=== PATIENT | male | born 1955 | race African-American/Black ===

== ENCOUNTER 2017-12-29 13:54 | Emergency (ER) | payer MEDICAID | END 2017-12-29 15:11 | disposition left against medical advice (07) | LOC: ER 15:10 | DX: Z53.21 Procedure and treatment not carried out due to patient leaving prior to being seen by health care provider (principal) ==

== ENCOUNTER 2018-05-08 09:40 | Emergency (ER) | payer MEDICAID ==
[~2018-05-08] VITALS: Ht 182.9 cm; Wt 77.0 kg
[2018-05-08 10:35] LABS: CLARITY URINE CLEAR (CLEAR); COLOR URINE YELLOW (YELLOW); KETONES URINE NEGATIVE (NEGATIVE); LEUKOCYTE ESTERASE URINE NEGATIVE (NEGATIVE); NITRITE URINE NEGATIVE (NEGATIVE); OCCULT BLOOD URINE NEGATIVE (NEGATIVE); PROTEIN URINE NEGATIVE (NEGATIVE); SPECIFIC GRAVITY URINE 1.026 (1.005-1.030); UROBILINOGEN URINE 0.2 E.U./dL (0.2-1.0)
[2018-05-08] MEDS ORDERED: IBUPROFEN 800MG TABLET PO ONE (11:30)
[2018-05-08] MEDS ORDERED: DEXAMETHASONE 10 MG/ML VIAL IM ONE (11:30)
[2018-05-08] MEDS ORDERED: PHENAZOPYRIDINE HCL 100MG TABLET PO ONE (11:30)
[2018-05-08] MEDS ORDERED: AZITHROMYCIN 500 MG TABLET PO SCH (12:00)
[2018-05-08] MEDS ORDERED: CEFTRIAXONE SODIUM 250 MG/VIAL IM ONE (12:00)
[2018-05-08 12:01] VITALS: BP 131/60
== END 2018-05-08 11:52 | disposition home or self-care (01) ==
LOC: ER 10:08
DX: M54.5 Low back pain (principal); R30.0 Dysuria; G89.29 Other chronic pain; R03.0 Elevated blood-pressure reading, without diagnosis of hypertension; Z20.2 Contact with and (suspected) exposure to infections with a predominantly sexual mode of transmission
CPT/HCPCS: 81003; 96372; 99283; J1100

== ENCOUNTER 2018-08-31 13:06 | Emergency (ER) | payer MEDICAID ==
[~2018-08-31] VITALS: Ht 182.9 cm; Wt 87.5 kg
[2018-08-31 13:18] VITALS: BP 131/78
== END 2018-08-31 18:00 | disposition left against medical advice (07) ==
LOC: ER 18:00
DX: H57.12 Ocular pain, left eye (principal); Z53.21 Procedure and treatment not carried out due to patient leaving prior to being seen by health care provider

== ENCOUNTER 2018-12-27 18:48 | Emergency (ER) | payer MEDICAID ==
[~2018-12-27] VITALS: Ht 175.3 cm; Wt 82.0 kg
[2018-12-28 09:46] VITALS: BP 133/80
== END 2018-12-28 09:58 | disposition home or self-care (01) ==
LOC: ER 18:48
DX: T69.9XXA Effect of reduced temperature, unspecified, initial encounter (principal); Z59.0 Homelessness; Z98.890 Other specified postprocedural states
CPT/HCPCS: 99283

== ENCOUNTER 2024-04-07 10:21 | Emergency (ER) | payer MEDICARE, MEDICAID ==
[~2024-04-07] VITALS: Ht 182.9 cm; Wt 80.0 kg
[2024-04-07 10:26] VITALS: O2SAT 99
[2024-04-07 11:05] LABS: BASOPHILS % 0.6 % (0.0-2.0); EOSINOPHILS % 1.1 % (0.0-5.0); HEMATOCRIT. 47.3 % (42.0-52.0); HEMOGLOBIN. 16.2 g/dL (14.0-18.0); LYMPHOCYTES % 30.7 % (20.0-50.0); MEAN CORPUSCULAR HEMOGLOBIN 31.4 pg (28.0-32.0); MEAN CORPUSCULAR HGB CONC 34.3 g/dL (31.0-37.0); MEAN CORPUSCULAR VOLUME 91.6 fL (80.0-94.0); MEAN PLATELET VOLUME 7.3 fl (7.4-10.4); MONOCYTES % 6.7 % (2.0-8.0); NEUTROPHILS % 60.9 % (40.0-76.0); PLATELET 238 x1000/uL (130-400); RED BLOOD CELL COUNT 5.16 mill/uL (4.7-6.1); RED CELL DISTRIBUTION WIDTH 13.8 % (11.6-14.6); WHITE BLOOD COUNT 6.5 x1000/uL (4.5-11.0)
[2024-04-07 11:36] LABS: CHLORIDE 106 mEq/L (98-107); POTASSIUM 4.4 mEq/L (3.5-5.1); SODIUM 140 mEq/L (136-145)
[2024-04-07 11:37] LABS: CALCIUM 9.7 mg/dL (8.7-10.4); CARBON DIOXIDE 32 mEq/L (21-32)
[2024-04-07 11:42] LABS: CREATININE 1.2 mg/dL (0.6-1.3); GLUCOSE 82 mg/dL (70-105); TROPONIN I HIGH SENSITIVITY 15 ng/L (3.0-53); UREA NITROGEN BLOOD 9 mg/dL (9-23)
[2024-04-07] MEDS: IBUPROFEN 600MG TABLET PO ONE (12:14)
[2024-04-07 12:55] LABS: TROPONIN I HIGH SENSITIVITY 15 ng/L (3.0-53)
[2024-04-07 14:04] VITALS: BP 143/82; PULSE 88; RESP 18; TEMP 98.7
== END 2024-04-07 14:42 | disposition home or self-care (01) ==
LOC: ER 10:52
DX: R07.9 Chest pain, unspecified (principal); Z98.890 Other specified postprocedural states
CPT/HCPCS: 36415; 71045; 80048; 84484; 85025; 93005; 99285

== ENCOUNTER 2024-06-09 06:47 | Emergency (ER) | payer MEDICARE, MEDICAID ==
[~2024-06-09] VITALS: Ht 182.9 cm; Wt 87.0 kg
[2024-06-09 07:08] VITALS: O2SAT 98
[2024-06-09] MEDS: SODIUM CHLORIDE 0.9% 1,000 ML IV ONE (07:15)
[2024-06-09] MEDS: ONDANSETRON HCL 4MG/2ML INJ IV STA (08:23)
[2024-06-09] MEDS: KETOROLAC 30MG/ML VIAL IV STA (08:23)
[2024-06-09 08:38] LABS: BASOPHILS % 0.5 % (0.0-2.0); EOSINOPHILS % 1.8 % (0.0-5.0); HEMATOCRIT. 47.3 % (42.0-52.0); HEMOGLOBIN. 15.7 g/dL (14.0-18.0); LYMPHOCYTES % 29.2 % (20.0-50.0); MEAN CORPUSCULAR HEMOGLOBIN 30.7 pg (28.0-32.0); MEAN CORPUSCULAR HGB CONC 33.1 g/dL (31.0-37.0); MEAN CORPUSCULAR VOLUME 92.8 fL (80.0-94.0); MEAN PLATELET VOLUME 7.6 fl (7.4-10.4); MONOCYTES % 6.8 % (2.0-8.0); NEUTROPHILS % 61.7 % (40.0-76.0); PLATELET 260 x1000/uL (130-400); RED CELL DISTRIBUTION WIDTH 13.7 % (11.6-14.6); WHITE BLOOD COUNT 5.1 x1000/uL (4.5-11.0)
[2024-06-09 08:53] LABS: PROTHROMBIN TIME 11.5 sec (9.6-11.0)
[2024-06-09 08:54] LABS: CHLORIDE 105 mEq/L (98-107); POTASSIUM 3.7 mEq/L (3.5-5.1); SODIUM 140 mEq/L (136-145)
[2024-06-09 08:55] LABS: CALCIUM 9.1 mg/dL (8.7-10.4); CARBON DIOXIDE 30 mEq/L (21-32)
[2024-06-09 09:00] LABS: CREATININE 1.3 mg/dL (0.6-1.3); GLUCOSE 93 mg/dL (70-105); UREA NITROGEN BLOOD 10 mg/dL (9-23)
[2024-06-09 09:02] LABS: ALANINE AMINOTRANSFERASE 19 IU/L (10-49); ALBUMIN 3.9 g/dL (3.2-4.8); ASPARTATE AMINOTRANSFERASE 22 IU/L (<34); BILIRUBIN DIRECT 0.3 mg/dL (<=3.0)
[2024-06-09 09:03] LABS: BILIRUBIN TOTAL 0.9 mg/dL (0.1-1.0); PROTEIN TOTAL 6.4 g/dL (6.0-8.3)
[2024-06-09 09:05] LABS: ETHANOL BLOOD < 10 mg/dL (<10)
[2024-06-09] MEDS ORDERED: CEFP200T14 MT (11:11)
[2024-06-09 11:17] LABS: CLARITY URINE CLEAR (CLEAR); COLOR URINE YELLOW (YELLOW); GLUCOSE URINE NEGATIVE (NEGATIVE); KETONES URINE NEGATIVE (NEGATIVE); LEUKOCYTE ESTERASE URINE NEGATIVE (NEGATIVE); NITRITE URINE NEGATIVE (NEGATIVE); OCCULT BLOOD URINE NEGATIVE (NEGATIVE); PROTEIN URINE NEGATIVE (NEGATIVE)
[2024-06-09 11:20] VITALS: BP 153/85; PULSE 51; RESP 18; TEMP 98.1
== END 2024-06-09 11:18 | disposition home or self-care (01) ==
LOC: ER 06:47
DX: N30.00 Acute cystitis without hematuria (principal)
CPT/HCPCS: 80076; 80048; 81003; 80320; 83690; 85025; 85610; 86850; 86900; 86901; 36415; 74176; 96361; 96374; 96375; 99285; J1885; J2405; J7030; G0480

== ENCOUNTER 2025-02-06 08:29 | Emergency (ER) | payer BC, MEDICAID ==
[~2025-02-06] VITALS: Ht 182.9 cm; Wt 83.9 kg
[~2025-02-06 08:29] MED LIST: CEFP200T14 MT; IBUP-2028 MT; LOPE2CAP MT; ONDA4TAB50 MT
[2025-02-06 08:40] VITALS: O2SAT 98
[2025-02-06] MEDS: KETOROLAC 30MG/ML VIAL IM ONE (09:27)
[2025-02-06] MEDS ORDERED: DICL75TA5 MT (10:17)
[2025-02-06] MEDS ORDERED: DICL100G32 TP (10:17)
[2025-02-06] MEDS: HYDROCODONE/ACETAMINOPHEN 10/325MG TABLET PO ONE (10:21)
[2025-02-06 10:26] VITALS: BP 136/74; PULSE 62; RESP 18; TEMP 36.8; O2SAT 98
== END 2025-02-06 10:28 | disposition home or self-care (01) ==
LOC: ER 08:29
DX: M19.011 Primary osteoarthritis, right shoulder (principal); Z79.899 Other long term (current) drug therapy; Z90.49 Acquired absence of other specified parts of digestive tract
CPT/HCPCS: 99283; 73030; 96372; J1885

== ENCOUNTER 2025-06-18 12:36 | Emergency (ER) | payer BC ==
[~2025-06-18] VITALS: Ht 182.9 cm; Wt 78.0 kg
[~2025-06-18 12:36] MED LIST changes: +DICL100G32 TP; +DICL75TA5 MT
[2025-06-18 12:39] VITALS: O2SAT 100
[2025-06-18 12:46] VITALS: BP 109/72; PULSE 59; RESP 18; TEMP 36.7; O2SAT 99
== END 2025-06-18 13:38 | disposition home or self-care (01) ==
LOC: ER 12:36
DX: H54.61 Unqualified visual loss, right eye, normal vision left eye (principal); Z90.49 Acquired absence of other specified parts of digestive tract
CPT/HCPCS: 99282